=== PATIENT | female | born 1965 ===

== ENCOUNTER 2016-12-13 13:07 | Emergency (ER) | payer MEDICAID ==
[2016-12-13 13:47] VITALS: BP 142/81; PULSE 87; RESP 18; TEMP 97; O2SAT 98
--- NOTE | 2016-12-13 14:27 | ED PDOC ---
Lower Extremity Pain/Injury Time Seen by Provider: 12/13/16 13:40 Chief Complaint (Nursing): Lower Extremity Problem/Injury Chief Complaint (Provider): Left Ankle Pain History Per: Patient History/Exam Limitations: no limitations Onset/Duration Of Symptoms: Days (x2.5 weeks) Current Symptoms Are (Timing): Still Present Additional Complaint(s): Preston Ojeda is a 51 year old female with a history of asthma, diabetes, and hypertension that presents to the ED with a chief complaint of left ankle pain that radiates down to her foot that she has been experiencing for the past 2.5 weeks after twisting her left ankle on 12/02/16. Patient's ankle is currently swollen. Past Medical History Reviewed: Historical Data, Nursing Documentation, Vital Signs Vital Signs: Last Vital Signs Temp 97 F L 12/13/16 13:45 Pulse 87 12/13/16 13:45 Resp 18 12/13/16 13:45 BP 142/81 12/13/16 13:45 Pulse Ox 98 12/13/16 13:45 - Medical History PMH: Depression, Diabetes, HIV, HTN, Hypercholesterolemia Denies: Chronic Kidney Disease - Family History Family History: States: Unknown Family Hx - Immunization History Hx Tetanus Toxoid Vaccination: No - Home Medications Home Medications: Ambulatory Orders Medication Instructions Recorded Lisinopril 5 mg PO DAILY 08/09/14 Atorvastatin [Lipitor] 40 mg PO DAILY #0 tab 08/13/14 MetFORMIN [glucoPHAGE] 1,000 mg PO BID #0 tab 08/13/14 QUEtiapine [Seroquel] 100 mg PO HS #30 tab 08/13/14 Sertraline [Zoloft] 25 mg PO DAILY #30 tab 08/13/14 Sulfamethoxazole/Trimethoprim 1 tab PO Q12 #0 tab 08/13/14 [Bactrim DS Tab] Cephalexin [Keflex] 500 mg PO BID #20 capsule 10/19/15 Ibuprofen [Motrin] 600 mg PO Q6 #20 tab 12/13/16 oxyCODONE/Acetaminophen [Percocet 1 ea PO Q6 PRN #5 tab 12/13/16 5/325 mg Tab] - Allergies Allergies/Adverse Reactions: Allergies Allergy/AdvReac Type Severity Reaction Status Date / Time No Known Allergies Allergy Verified 12/13/16 13:44 Review of Systems Musculoskeletal: Positive for: Leg Pain (left ankle pain that radiates down to her foot) Physical Exam - Reviewed Nursing Documentation Reviewed: Yes Vital Signs Reviewed: Yes - Physical Exam Appears: Positive for: Non-toxic, No Acute Distress Head Exam: Positive for: ATRAUMATIC, NORMOCEPHALIC Skin: Positive for: Normal Color, Warm Pulses-Dorsalis Pedis (L): 2+ Pulses-Dorsalis Pedis (R): 2+ Extremity: Positive for: Tenderness (below left lateral malleolus), Swelling ( below left lateral malleolus and to dorsal aspect of left foot), Other ( ecchymosis below left lateral malleolus). Negative for: Normal ROM (limited ROM left foot and ankle due to pain) Neurologic/Psych: Positive for: Alert, Oriented. Negative for: Motor/Sensory Deficits - ECG O2 Sat by Pulse Oximetry: 98 (RA) Pulse Ox Interpretation: Normal Medical Decision Making Medical Decision Making: Impression: Left Ankle Pain due to Injury Plan: * Ibuprofen 600 mg PO * Percocet 1 tab PO * X-Ray Left Ankle * X-Ray Left Foot * Reevaluation 14:35 X-Ray Left Foot FINDINGS: BONES: Oblique displaced fracture of the distal fibula with intra-articular extension. The remainder of the visualized osseous structures appear intact. JOINTS: No dislocation. SOFT TISSUES: Soft tissue swelling. No evidence of radiopaque foreign body. OTHER FINDINGS: None. IMPRESSION: Oblique displaced fracture of the distal fibula with intra-articular extension. Associated soft tissue swelling. X-Ray Left Ankle FINDINGS: BONES: Oblique displaced fracture of the distal fibula with intra-articular extension. The remainder of the visualized osseous structures appear intact. JOINTS: No dislocation. SOFT TISSUES: Soft tissue swelling. No evidence of radiopaque foreign body. OTHER FINDINGS: None. IMPRESSION: Oblique displaced fracture of the distal fibula with intra-articular extension. Associated soft tissue swelling. Podiatry consult obtained, see notes. Resident at bedside for evaluation and splintting Scribe Attestation: Documented by Zunilda Ma, acting as a scribe for Laurie Morrow PA-C. Provider Scribe Attestation: All medical record entries made by the Scribe were at my direction and personally dictated by me. I have reviewed the chart and agree that the record accurately reflects my personal performance of the history, physical exam, medical decision making, and the department course for this patient. I have also personally directed, reviewed, and agree with the discharge instructions and disposition. Disposition - Clinical Impression Clinical Impression: Ankle fracture - Patient ED Disposition Is Patient to be Admitted: No - Disposition Referrals: Podiatry Clinic [Outside] [facility] [Outside] Disposition: Routine/Home Disposition Time: 15:39 Condition: STABLE Additional Instructions: Jayde bhatti Grulla [phone] Prescriptions: Ibuprofen [Motrin] 600 mg PO Q6 #20 tab oxyCODONE/Acetaminophen [Percocet 5/325 mg Tab] 1 ea PO Q6 PRN #5 tab PRN Reason: Pain, Severe (8-10) Instructions: Ankle Fracture (ED) Forms: [facility] (Greek), [facility] (Austrian) Print Language: QATARI - POA Present On Arrival: Falls Or Trauma
[2016-12-13] MEDS ORDERED: Oxycodone/Acetaminophen 5/325 mg Tab ONE (14:35)
[2016-12-13] MEDS ORDERED: Oxycodone/Acetaminophen 5/325 mg Tab PO STA (14:35)
--- NOTE | 2016-12-13 14:39 | RAD ---
PROCEDURE: Left foot radiographs Left ankle radiographs HISTORY: twist fall on December 02 COMPARISON: None available. FINDINGS: BONES: Oblique displaced fracture of the distal fibula with intra-articular extension. The remainder of the visualized osseous structures appear intact. JOINTS: No dislocation. SOFT TISSUES: Soft tissue swelling. No evidence of radiopaque foreign body. OTHER FINDINGS: None. IMPRESSION: Oblique displaced fracture of the distal fibula with intra-articular extension. Associated soft tissue swelling.
--- NOTE | 2016-12-13 16:39 | CP.PCM.CON ---
History of Present Illness - History of Present Illness History of Present Illness: 51 year old patient with PMH of Depression, Diabetes, HIV, HTN, Hypercholesterolemia presents to the ED for left ankle pain. On the 12/02/16, patient slipped and fell while walking. She didn't think anything of it at that time. The swelling has gotten progressively worse and the pain has gotten worse. She reports the pain as being at the anterior and lateral ankle and extending to the dorsum of the foot. She rates the pain 8/10 and describes the pain as a throbbing and stabbing pain. She denies n/v/sob/cp/chills or f. PMH: Depression, Diabetes, HIV, HTN, Hypercholesterolemia Meds: see list Allergies: NKDA FH: none Surgeries: none SH: current smoker, denies alcohol, drugs Translation services was used in this consult: Mariah [id number] and Tracy [id number] Review of Systems - Constitutional Constitutional: As Per HPI - Musculoskeletal Musculoskeletal: As Per HPI Past Patient History - Infectious Disease Hx of Infectious Diseases: None - Past Social History Smoking Status: Never Smoked - CARDIAC Hx Hypercholesterolemia: Yes Hx Hypertension: Yes - PULMONARY Hx Respiratory Disorders: No - NEUROLOGICAL Hx Neurological Disorder: No - HEENT Hx HEENT Problems: No - RENAL Hx Chronic Kidney Disease: No - ENDOCRINE/METABOLIC Hx Endocrine Disorders: Yes Hx Diabetes Mellitus Type 2: Yes - HEMATOLOGICAL/ONCOLOGICAL Hx Human Immunodeficiency Virus (HIV): Yes - INTEGUMENTARY Hx Dermatological Problems: No - MUSCULOSKELETAL/RHEUMATOLOGICAL Hx Musculoskeletal Disorders: No - GASTROINTESTINAL Hx Gastrointestinal Disorders: No - GENITOURINARY/GYNECOLOGICAL Hx Genitourinary Disorders: No - PSYCHIATRIC Hx Depression: Yes - SURGICAL HISTORY Hx Surgeries: Yes Hx Section: Yes (x2) - ANESTHESIA Hx Anesthesia: Yes Hx Anesthesia Reactions: No Hx Malignant Hyperthermia: No Meds Home Medications: Home Medication List Medication Instructions Recorded Confirmed Type Ibuprofen [Motrin] 600 mg PO Q6 #20 tab 12/13/16 Rx oxyCODONE/Acetaminophen [Percocet 1 ea PO Q6 PRN #5 tab 12/13/16 Rx 5/325 mg Tab] Allergies/Adverse Reactions: Allergies Allergy/AdvReac Type Severity Reaction Status Date / Time No Known Allergies Allergy Verified 12/13/16 13:44 Physical Exam - Constitutional Appears: Well, Non-toxic, No Acute Distress - Extremities Exam Additional comments: Vasc: 2/4 DP and 2/4 PT bilaterally, [employer] < 3 seconds, temperature gradient WNL, moderate nonpitting edema at the left ankle Ortho: MM 5/5 in four compartments bilaterally, severe pain with palpation to the left distal lateral malleolus; moderate pain with palpation to left anterior ankle; patient able to perform ankle ROM, able to wiggle toes Neuro: gross sensation intact bilaterally Derm: no skin lesions noted; no ecchymosis noted, mild erythema noted to the lateral and dorsum foot - Neurological Exam Neurological exam: Alert, Oriented x3 - Psychiatric Exam Psychiatric exam: Normal Affect, Normal Mood Results - Vital Signs Recent Vital Signs: Last Vital Signs Temp 97 F L 12/13/16 13:45 Pulse 87 12/13/16 13:45 Resp 18 12/13/16 13:45 BP 142/81 12/13/16 13:45 Pulse Ox 98 12/13/16 15:39 Assessment & Plan - Assessment and Plan (Free Text) Assessment: 51 year old female with PMH of Depression, Diabetes, HIV, HTN, Hypercholesterolemia presents to ED for displaced oblique fracture of left distal fibular Plan: Patient was seen and evaluated in the ED. Discussed plan in detail with attending Dr. Mcgee X-ray reviewed- Left oblique displaced fracture of the distal fibular Cuellar compression with posterior splint applied to LLE. Instructed to keep c/d/ i. Do not get wet. Instructed to keep NWB with crutches Educated patient on RICE protocol Explained to patient, she will need to have surgery for displaced fracture which will include the use of screws and plates. Patient reports verbal understanding. Patient to f/u at [facility] Sunday with attending Dr. Mcgee. Information attached to discharge papers. Patient states she may f/u with a geophysicist in [place] instead but does not know. She is in the process of moving to [place]. Thank you for the podiatry consult. T
== END 2016-12-13 17:25 | disposition home or self-care (01) ==
LOC: H.ER 13:07
DX: S82.402A Unspecified fracture of shaft of left fibula, initial encounter for closed fracture (principal); X50.9XXA Other and unspecified overexertion or strenuous movements or postures, initial encounter; Y92.89 Other specified places as the place of occurrence of the external cause; E11.9 Type 2 diabetes mellitus without complications; E78.00 Pure hypercholesterolemia, unspecified; F32.9 Major depressive disorder, single episode, unspecified; I10 Essential (primary) hypertension; Z79.84 Long term (current) use of oral hypoglycemic drugs